=== PATIENT | male | born 1960 | race Caucasian/White ===

== ENCOUNTER 2019-01-09 16:38 | Inpatient (IN) | payer MEDICAID ==
[2019-01-09 17:54] LABS: ABNORMAL IP MESSAGE 1; HEMATOCRIT 21.2 % (42.0-52.0); MEAN CORPUSCULAR HEMOGLOBIN 16.1 pg (29.0-33.0); MEAN CORPUSCULAR HGB CONC 25.9 g/dl (32.0-37.0); MEAN CORPUSCULAR VOLUME 62.2 fl (82.0-101.0); MEAN PLATELET VOLUME 9.7 fl (7.4-10.4); NUCLEATED RED BLOOD CELLS% 0.7 /100WBC (0.0-0.0); PLATELET COUNT 454 10^3/UL (140-415); POSITIVE DIFF @See below; RED BLOOD COUNT 3.41 10^6/ul (4.70-6.10); RED CELL DISTRIBUTION WIDTH 19.7 % (11.5-14.5); RETICULOCYTE COUNT # 0.086 X10^6 (0.020-0.110); RETICULOCYTE COUNT % 2.5 % (0.5-1.5); RETICULOCYTE RBC 3.41
[2019-01-09 18:04] LABS: ADD MAN DIFF? YES; HEMOGLOBIN 5.5 g/dl (14.0-18.0)
[2019-01-09 18:20] LABS: ANION GAP 12 (5-13); BLOOD UREA NITROGEN 9 mg/dl (7-20); CALCIUM 9.4 mg/dl (8.4-10.2); CARBON DIOXIDE 24 mmol/L (21-31); CHLORIDE 102 mmol/L (97-110); CREATININE 1.01 mg/dl (0.61-1.24); Estimated GFR > 60 mL/min (>60); GLUCOSE 117 mg/dl (70-220); LACTATE DEHYDROGENASE 370 IU/L (313-618); POTASSIUM 3.9 mmol/L (3.5-5.1); SODIUM 138 mmol/L (135-144)
[2019-01-09] MEDS ORDERED: ACETAMINOPHEN 325 MG TAB PO ×2 (18:30→20:00)
[2019-01-09] MEDS ORDERED: ONDANSETRON 4 MG INJ IV (18:30)
[2019-01-09 18:59] LABS: ANISOCYTOSIS 3+ (0-0); ELLIPTO 2+ (0-0); GIANT THROMBO% (M) 1 % (0-0); HYPOCHROMASIA 2+ (0-0); LYMPHOCYTES #M 1.9 10^3/ul (0.8-2.9); LYMPHOCYTES % (M) 19 % (15-51); MICROCYTOSIS 3+ (0-0); MONOCYTE #M 1.2 10^3/ul (0.3-0.9); MONOCYTES % (M) 12 % (0-11); MYELOCYTES #M 0.1 10^3/ul (0.0-0.0); MYELOCYTES % (M) 1 % (0-0); PLATELET ESTIMATE NORMAL; POIKILOCYTOSIS 2+ (0-0); POLYCHROMASIA 3+ (0-0); SEGMENTED NEUTROPHILS (M) % 68 % (39-77); SMUDGE%M 3 % (0-0)
[2019-01-09] MEDS ORDERED: NACL 0.9% 3 ML SYG IV (20:00)
[2019-01-09] MEDS ORDERED: DOCUSATE SODIUM 100 MG CAP PO (20:00)
[2019-01-09] MEDS ORDERED: ONDANSETRON 4 MG TAB PO (20:00)
[2019-01-09 20:13] LABS: INR 0.97; PARTIAL THROMBOPLASTIN TIME 27.3 Sec (23.0-35.0)
[2019-01-09 20:15] LABS: IRON 34 ug/dl (35-150)
[2019-01-09 20:25] LABS: % IRON SATURATION 6 % SAT (22-52); TOTAL IRON BINDING CAPACITY 539 ug/dl (241-421)
[2019-01-10] MEDS: PEG/ELECTROLYTES 4L BTL PO (00:01)
[2019-01-10] MEDS: FAMOTIDINE 20 MG TAB PO ×3 (00:05→21:25)
[2019-01-10] MEDS: SOD FERRIC GLUC COMPLX 125 MG in SOD CHLORIDE 0.9% 100 ML IVPB ×3 (01:27→16:06)
[2019-01-10 05:34] LABS: IMMEDIATE SPIN CROSSMATCH 1 4
[2019-01-10] MEDS: MAGNESIUM CITRATE 300 ML BTL PO (06:06)
[2019-01-10 10:11] LABS: ADD MAN DIFF? NO
[2019-01-10 10:14] LABS: ABNORMAL IP MESSAGE 1; BASOPHILS % 0.4 % (0.0-2.0); EOSINOPHILS # 0.1 10^3/ul (0.0-0.5); EOSINOPHILS % 1.3 % (0.0-7.0); HEMATOCRIT 31.5 % (42.0-52.0); HEMOGLOBIN 9.3 g/dl (14.0-18.0); LYMPHOCYTES # 1.8 10^3/ul (0.8-2.9); LYMPHOCYTES % 17.3 % (15.0-51.0); MEAN CORPUSCULAR HEMOGLOBIN 20.6 pg (29.0-33.0); MEAN CORPUSCULAR HGB CONC 29.5 g/dl (32.0-37.0); MEAN CORPUSCULAR VOLUME 69.8 fl (82.0-101.0); MEAN PLATELET VOLUME 9.8 fl (7.4-10.4); MONOCYTE # 0.9 10^3/ul (0.3-0.9); MONOCYTES % 8.2 % (0.0-11.0); NEUTROPHIL # 7.4 10^3/ul (1.6-7.5); NEUTROPHILS % 71.4 % (39.0-77.0); NUCLEATED RED BLOOD CELLS # 0.1 10^3/ul (0.0-0.0); NUCLEATED RED BLOOD CELLS% 0.5 /100WBC (0.0-0.0); PLATELET COUNT 402 10^3/UL (140-415); POSITIVE DIFF @See below; RED BLOOD COUNT 4.51 10^6/ul (4.70-6.10); RED CELL DISTRIBUTION WIDTH 26.3 % (11.5-14.5)
[2019-01-10 10:14] LABS: WHITE BLOOD COUNT 10.4 10^3/ul (4.8-10.8)
[2019-01-10 10:35] LABS: ALANINE AMINOTRANSFERASE 22 IU/L (13-69); ALBUMIN 4.2 g/dl (3.3-4.9); ALBUMIN/GLOBULIN RATIO 1.31; ALKALINE PHOSPHATASE 49 IU/L (42-121); ANION GAP 9 (5-13); ASPARTATE AMINO TRANSFERASE 29 IU/L (15-46); BILIRUBIN,INDIRECT 1.6 mg/dl (0-1.1); BILIRUBIN,TOTAL 1.6 mg/dl (0.2-1.3); BLOOD UREA NITROGEN 9 mg/dl (7-20); CALCIUM 9.7 mg/dl (8.4-10.2); CARBON DIOXIDE 26 mmol/L (21-31); CHLORIDE 107 mmol/L (97-110); CREATININE 1.02 mg/dl (0.61-1.24); Estimated GFR > 60 mL/min (>60); GLUCOSE 98 mg/dl (70-220); MAGNESIUM 2.6 mg/dl (1.7-2.5); POTASSIUM 4.6 mmol/L (3.5-5.1); SODIUM 142 mmol/L (135-144); TOTAL PROTEIN 7.4 g/dl (6.1-8.1)
[2019-01-10] MEDS: LEVOTHYROXINE 100 MCG TAB PO (16:07)
[2019-01-10] MEDS: LIDOCAINE 2% (SDV) 5 ML INJ (18:08)
[2019-01-10] MEDS: PROPOFOL 60 ML (18:08)
[2019-01-11] MEDS: LEVOTHYROXINE 100 MCG TAB PO (06:06)
[2019-01-11] MEDS: FAMOTIDINE 20 MG TAB PO (09:59)
[2019-01-11] MEDS: SOD FERRIC GLUC COMPLX 125 MG in SOD CHLORIDE 0.9% 100 ML IVPB (13:28)
[2019-01-12] MEDS ORDERED: LEVOTHYROXINE 100 MCG TAB PO (06:00)
== END 2019-01-11 15:49 | disposition home or self-care (01) | DRG 812 ==
LOC: E/R 16:38 → PP2 18:27
PROC: 30233N1 Transfusion of Nonautologous Red Blood Cells into Peripheral Vein, Percutaneous Approach (ICD-10-PCS; principal; 2019-01-10 12:25)
PROC: 0DB68ZX Excision of Stomach, Via Natural or Artificial Opening Endoscopic, Diagnostic (ICD-10-PCS; 2019-01-10 12:25)
PROC: 0DBN8ZX Excision of Sigmoid Colon, Via Natural or Artificial Opening Endoscopic, Diagnostic (ICD-10-PCS; 2019-01-10 12:25)
DX: D50.9 Iron deficiency anemia, unspecified (principal); K50.10 Crohn's disease of large intestine without complications; K62.5 Hemorrhage of anus and rectum; K20.9 Esophagitis, unspecified; K29.70 Gastritis, unspecified, without bleeding; K64.8 Other hemorrhoids; K57.30 Diverticulosis of large intestine without perforation or abscess without bleeding
CPT/HCPCS: 36430; 80048; 80053; 83540; 83615; 83735; 84443; 85025; 85045; 85610; 85730; 86850; 86900; 86901; 86920; 88305; 88312; 88313; 99285-25